=== PATIENT | female | born 1995 | race Caucasian/White ===

== ENCOUNTER 2017-05-02 22:10 | Inpatient (IN) | payer OTHER ==
[~2017-05-02] VITALS: Ht 160 cm; Wt 66.2 kg
[~2017-05-02 22:10] MED LIST: NORCO 5-325 TA1 EACH PO
[2017-05-02 22:41] LABS: HEMOGLOBIN 11.1 gm/dl (12.3-15.3); RED BLOOD COUNT 3.84 M/UL (4.00-5.10); WHITE BLOOD COUNT 10.6 K/UL (4.5-11.0)
[2017-05-04 02:43] LABS: HEMOGLOBIN 11.5 gm/dl (12.3-15.3)
== END 2017-05-04 13:59 | disposition home or self-care (01) | DRG 775 ==
LOC: GENOP 22:10 → OB 22:33
PROVIDERS: ADMIT Obstetrics & Gynecology
PROC: 10E0XZZ Delivery of Products of Conception, External Approach (ICD-10-PCS; principal; 2017-05-03)
PROC: 3E0234Z Introduction of Serum, Toxoid and Vaccine into Muscle, Percutaneous Approach (ICD-10-PCS; 2017-05-03)
DX: O75.89 Other specified complications of labor and delivery (principal); N87.0 Mild cervical dysplasia; Z3A.39 39 weeks gestation of pregnancy; Z37.0 Single live birth; Z88.0 Allergy status to penicillin; Z82.49 Family history of ischemic heart disease and other diseases of the circulatory system; Z83.3 Family history of diabetes mellitus; Z23 Encounter for immunization
CPT/HCPCS: 36415; 81001; 85014; 85018; 85025; 90715; J2590; J7120